=== PATIENT | female | born 1975 | race Hispanic/Latino ===

== ENCOUNTER 2017-10-15 09:07 | Inpatient (IN) | payer BC ==
[~2017-10-15] VITALS: Ht 160 cm; Wt 65.8 kg
[2017-10-15] MEDS ORDERED: SODIUM CHLORIDE 0.9% 1000ML 1,000 ML IV STA (09:53)
[2017-10-15] MEDS: SODIUM CHLORIDE 0.9% 1000ML 1,000 ML IV SCH ×2 (10:50→20:42)
[2017-10-15 11:00] LABS: BASOPHILS # (AUTO) 0.1 (0.0-0.1); BASOPHILS % 0.9 % (0.0-1.0); EOSINOPHILS % 0.4 % (0.0-6.0); HEMATOCRIT 31.8 % (34.2-44.1); HEMOGLOBIN 9.6 g/dL (12.0-16.0); LYMPHOCYTES # (AUTO) 1.5 (1.0-3.2); LYMPHOCYTES % 22.3 % (18.0-39.1); MEAN CORPUSCULAR HEMOGLOBIN 21.6 pg (28-32); MEAN CORPUSCULAR HGB CONC 30.2 g/dL (31-35); MEAN CORPUSCULAR VOLUME 71.6 fL (81-99); MONOCYTES # (AUTO) 0.5 (0.2-0.8); MONOCYTES % 7.6 % (4.4-11.3); NEUTROPHILS # (AUTO) 4.6 (2.1-6.9); NEUTROPHILS % 68.5 % (38.7-80.0); PLATELET COUNT 198 x10e3/uL (140-360); RED BLOOD COUNT 4.44 x10e6/uL (3.6-5.1); RED CELL DISTRIBUTION WIDTH 16.4 % (11.7-14.4)
[2017-10-15 11:01] LABS: BILIRUBIN,URINE NEGATIVE (NEGATIVE); KETONES,URINE NEGATIVE (NEGATIVE); LEUKOCYTE ESTERASE ,URINE 2+ (NEGATIVE); NITRITE,URINE NEGATIVE (NEGATIVE); PROTEIN,URINE DIPSTICK NEGATIVE (NEGATIVE); URINE UROBILINOGEN 0.2 mg/dL (0.2 - 1)
[2017-10-15 11:02] LABS: CLARITY,URINE CLEAR (CLEAR); COLOR,URINE YELLOW (YELLOW)
--- NOTE | 2017-10-15 11:02 | Diagnostic Imaging Report ---
PROCEDURE: A single AP view of the chest. COMPARISON: None. INDICATIONS: WEAKNESS, LIGHT-HEADED FINDINGS: Lines/tubes: None. Lungs: The lungs are well inflated and clear. There is no evidence of pneumonia or pulmonary edema. Pleura: There is no pleural effusion or pneumothorax. Heart and mediastinum: The heart and the mediastinum are unremarkable. Bones: No acute bony abnormality. IMPRESSION: No acute radiographic abnormality. Dictated by: Yfn Marino M.D. on 10/15/2017 at 11:02 Electronically approved by: Yfn Marino M.D. on 10/15/2017 at 11:02
[2017-10-15 11:15] LABS: WBC,URINE (MAN) 0-5 /HPF (0-5)
[2017-10-15 11:16] LABS: EPITHELIAL CELLS,URINE FEW /LPF
[2017-10-15 11:16] LABS: INR 1.16; PROTHROMBIN TIME 13.9 seconds (11.9-14.5)
[2017-10-15 11:17] LABS: PARTIAL THROMBOPLASTIN TIME 27.8 seconds (23.8-35.5)
[2017-10-15 11:24] LABS: ALANINE AMINOTRANSFERASE 20 IU/L (0-55); ALBUMIN 3.7 g/dL (3.5-5.0); ALBUMIN/GLOBULIN RATIO 1.3 (0.8-2.0); ALKALINE PHOSPHATASE 49 IU/L (40-150); ANION GAP 12.2 mmol/L (8-16); BLOOD UREA NITROGEN 14 mg/dL (7-26); BUN/CREATININE RATIO 22 (6-25); CALCIUM 8.9 mg/dL (8.4-10.2); CARBON DIOXIDE 23 mmol/L (22-29); CHLORIDE 108 mmol/L (98-107); CREATINE KINASE 45 IU/L (29-168); CREATININE, SERUM 0.64 mg/dL (0.57-1.11); EST GLOMERULAR FILTRATION RATE > 60 ML/MIN (60-); GLUCOSE 87 mg/dL (74-118); POTASSIUM 4.2 mmol/L (3.5-5.1); SODIUM 139 mmol/L (136-145)
--- OUTSIDE RECORDS SUMMARY | 2017-10-15 12:06 | XMS REPORT ---
Author Author [facility] Address Unknown Phone Unavailable Care Team Providers Care Cementer Hand Name Role Phone CARLA ARIZMENDI Unavailable Unavailable Problems This patient has no known problems. Allergies, Adverse Reactions, Alerts This patient has no known allergies or adverse reactions. Medications This patient has no known medications. Results Test Description Test Time Test Comments Text Results Atomic Results Result Comments CHEST SINGLE (PORTABLE) [place] [address] Patient Name: CRISS KYLE MR #: [id number] : 1975 Age/Sex: 42/F Req #: [id number] Adm Physician: Ordered by: SHIRA LO PRECISION DYER Report #: [id number] Location: ER Room/Bed: Procedure: [id number] DX/CHEST SINGLE (PORTABLE) Exam Date: 10/15/17 Exam Time: 1030 REPORT STATUS: Signed PROCEDURE: A single AP view of the chest. COMPARISON: None. INDICATIONS: WEAKNESS, LIGHT-HEADED FINDINGS: Lines/tubes: None. Lungs: The lungs are well inflated and clear. There is no evidence of pneumonia or pulmonary edema. Pleura: There is no pleural effusion or pneumothorax. Heart and mediastinum: The heart and the mediastinum are unremarkable. Bones: No acute bony abnormality. IMPRESSION: No acute radiographic abnormality. Dictated by: Xochilt Galicia M.D. on 10/15/2017 at 11:02 Electronically approved by: Xochilt Galicia M.D. on 10/15/2017 at 11: 02 Dictated By: XOCHILT GALICIA MD 01 Transcribed By: AARON on 10/15/171101 COPY TO : SHIRA LO NP
--- NOTE | 2017-10-15 13:47 | History and Physical ---
CHIEF COMPLAINT: Lightheadedness. HISTORY OF PRESENT ILLNESS: Ms. Pruitt is a pleasant 42-year-old woman with no past medical history, who presents with lightheaded spells when standing up. EKG shows sinus rhythm with third-degree AV block and left bundle branch block, pattern QRS. She denies any syncopal spells, chest pain or shortness of breath. She is sedentary. When she exerts, symptoms of fatigue seem present. She is not on any home medications. She denies any other past medical history. ALLERGIES: NO KNOWN DRUG ALLERGIES. REVIEW OF SYSTEMS: A 12-system review is negative, except for as noted above. PAST MEDICAL HISTORY: None reported. SOCIAL HISTORY: Negative times 3. FAMILY HISTORY: Noncontributory. PHYSICAL EXAMINATION VITALS: Temperature 99.2, heart rate 38, respiratory rate 16, blood pressure 134/71, and O2 sat 99% on room air. GENERAL: In no acute distress. Alert. NECK: No JVD. CHEST: Clear to auscultation. CARDIOVASCULAR: Regular rate and rhythm. Normal S1 and S2. Bradycardic. A 1/6 systolic ejection murmur. No S3. No S4. ABDOMEN: Soft. EXTREMITIES: No edema. Warm distal extremities. CARDIOVASCULAR MEDICATIONS: None other than normal saline. SCDs and TEDs advised. STUDIES REVIEWED: Chest x-ray unremarkable. White blood cells 6.6, hemoglobin 9.6 and platelets 198,000. INR 1.1. Sodium 139, potassium 4.2, chloride 108, bicarbonate 23, BUN 14, creatinine 0.6, glucose 87, calcium 8.9, magnesium 2. Total bilirubin 0.5, AST 16, ALT 20, alk phos 49. CK 45, CK-MB 3.5 and troponin I less than 0.001. Total protein 6.6, albumin 3.7. HCG quantitative is negative. UA significant for leukocyte esterase 2+, white blood cells 0-5, rbcs none, bacteria none. ASSESSMENT 1. Third-degree atrioventricular block with associated left bundle branch block. 2. Anemia. RECOMMENDATIONS 1. EP has been consulted for pacemaker implantation. 2. Echocardiogram has been ordered and is still pending. Will review once available. 3. SCDs and TEDs advised. 4. Continue saline IV for now. 5. Anemia workup. Job#: [id number] GABRIELLA
[2017-10-15 13:50] LABS: CHOL/HDL RATIO 2.8 (3.0-3.6)
[2017-10-15 14:10] LABS: FERRITIN 3.71 ng/mL (4.63-204.00); THYROID STIMULATING HORMONE 1.162 uIU/mL (0.350-4.940)
[2017-10-15 15:03] VITALS: BP 119/50
[2017-10-15 15:21] VITALS: BP 119/50
[2017-10-15] MEDS ORDERED: MIDAZOLAM HCL 2 MG/2 ML VIAL ONE ×2 (16:46→17:32)
[2017-10-15] MEDS ORDERED: FENTANYL CITRATE/PF 100MCG/2 ML INJ ONE (16:47)
[2017-10-15] MEDS ORDERED: SODIUM CHLORIDE 0.9% 1000ML 1,000 ML ONE (16:47)
[2017-10-15] MEDS ORDERED: LIDOCAINE HCL 2% LOCAL 20 ML VIAL ONE ×2 (16:47→17:29)
[2017-10-15] MEDS ORDERED: BACITRACIN 50,000 UNIT VIAL ONE (16:47)
[2017-10-15] MEDS ORDERED: SODIUM CHLORIDE 0.9% 500ML 500 ML ONE (16:47)
[2017-10-15] MEDS ORDERED: CEFAZOLIN SOD 2 GM/D5W 50ML 50 ML IV ONE (16:52)
[2017-10-15] MEDS ORDERED: MORPHINE SULFATE 2 MG/ML SYR IV PRN (19:45)
[2017-10-15 19:48] LABS: CREATINE KINASE MB 0.8 ng/mL (0-5.0)
[2017-10-15 20:14] VITALS: BP 130/76
[2017-10-15 20:15] VITALS: BP 130/76
--- NOTE | 2017-10-15 21:33 | Diagnostic Imaging Report ---
EXAM: CHEST SINGLE (PORTABLE), AP 1 view INDICATION: Unavailable COMPARISON: None FINDINGS: LINES/TUBES: Left approach dual lead cardiac device. LUNGS: No consolidations or edema. PLEURA: No effusions or pneumothorax. HEART AND MEDIASTINUM: Normal size and contour. BONES AND SOFT TISSUES: No acute findings. IMPRESSION: No acute thoracic abnormality. Signed by: Dr. Emilie Min M.D. on 10/15/2017 9:29 PM
--- NOTE | 2017-10-15 22:52 | Consultation ---
DATE OF CONSULTATION: October 15, 2017 REFERRING PHYSICIAN: Dr. Navas. REASON FOR CONSULT: Complete heart block. HISTORY OF PRESENT ILLNESS: This is a 42-year-old woman with no significant past medical history who presents today with progressive dizziness and near syncope. Patient was evaluated a few months ago. Patient was having episodes of high-degree AV block and also left bundle branch block. At that time, a pacemaker was considered, however, was not done. [place] However, she presents back with progressive symptoms of dizziness, tiredness, feeling very weak and having near syncope. She was found to be in sinus rhythm with 3rd degree AV block and left bundle branch block. No chest pain. REVIEW OF SYSTEMS CONSTITUTIONAL: Negative. CARDIOVASCULAR: As per HPI. RESPIRATORY: Negative. GASTROINTESTINAL: Negative. GENITOURINARY: Negative. MUSCULOSKELETAL: Negative. EYES: Negative. ENT: Negative. ALLERGY/IMMUNOLOGY: Negative. PSYCHIATRY: Negative. PAST MEDICAL HISTORY: Negative. PAST SURGICAL HISTORY: Negative. FAMILY HISTORY: No premature coronary artery disease. SOCIAL HISTORY: No smoking, alcohol or illicit drugs. PHYSICAL EXAM VITAL SIGNS: Blood pressure 110/60, pulse 40, respirations 20, O2 sat 98%. GENERAL: No acute distress. HEENT: Moist mucous membranes. CARDIOVASCULAR: Regular. RESPIRATORY: Clear. ABDOMEN: Soft, nontender. MUSCULOSKELETAL: 2+ distal pulses. No edema. NEUROLOGICAL: No focal deficit. SKIN: No lesions. PSYCHIATRY: Normal thought process. EKG: Sinus, intermittent 3rd degree AV block with left bundle branch block and escape rhythm. IMPRESSION: Third-degree atrioventricular block, highly symptomatic, no reversible causes. RECOMMENDATIONS: Had a discussion with the patient, she has indication for a pacemaker. This procedure was explained in detail with benefits and risks. Patient voices understanding and wishes to proceed. Will plan for a dual-chamber pacemaker. Thank you for letting us participate on Ms. Pruitt's [facility]. Job#: [id number]
[2017-10-15] MEDS: CEFAZOLIN SOD 2 GM in WATER STERILE 10ML VIAL 10 ML IV SCH (23:54)
[2017-10-16 00:18] VITALS: BP 137/79
[2017-10-16 04:02] VITALS: BP 129/77
[2017-10-16] MEDS: SODIUM CHLORIDE 0.9% 1000ML 1,000 ML IV SCH (04:17)
[2017-10-16 06:05] LABS: BASOPHILS # (AUTO) 0.1 (0.0-0.1); BASOPHILS % 0.6 % (0.0-1.0); EOSINOPHILS % 0.1 % (0.0-6.0); HEMATOCRIT 28.9 % (34.2-44.1); HEMOGLOBIN 8.9 g/dL (12.0-16.0); LYMPHOCYTES # (AUTO) 0.8 (1.0-3.2); LYMPHOCYTES % 9.2 % (18.0-39.1); MEAN CORPUSCULAR HEMOGLOBIN 21.8 pg (28-32); MEAN CORPUSCULAR HGB CONC 30.8 g/dL (31-35); MEAN CORPUSCULAR VOLUME 70.8 fL (81-99); MONOCYTES # (AUTO) 0.5 (0.2-0.8); MONOCYTES % 5.5 % (4.4-11.3); NEUTROPHILS # (AUTO) 6.9 (2.1-6.9); PLATELET COUNT 190 x10e3/uL (140-360); RED BLOOD COUNT 4.08 x10e6/uL (3.6-5.1); RED CELL DISTRIBUTION WIDTH 16.1 % (11.7-14.4)
[2017-10-16] MEDS: CEFAZOLIN SOD 2 GM in WATER STERILE 10ML VIAL 10 ML IV SCH (06:09)
[2017-10-16 06:37] LABS: BLOOD UREA NITROGEN 11 mg/dL (7-26); BUN/CREATININE RATIO 18 (6-25); CALCIUM 8.6 mg/dL (8.4-10.2); CARBON DIOXIDE 21 mmol/L (22-29); CHLORIDE 108 mmol/L (98-107); CREATININE, SERUM 0.62 mg/dL (0.57-1.11); EST GLOMERULAR FILTRATION RATE > 60 ML/MIN (60-); GLUCOSE 96 mg/dL (74-118); MAGNESIUM 1.9 MG/DL (1.3-2.1); SODIUM 137 mmol/L (136-145)
[2017-10-16 07:00] VITALS: BP 110/66
[2017-10-16 07:07] LABS: CREATINE KINASE MB 0.7 ng/mL (0-5.0)
[2017-10-16] MEDS ORDERED: MINOCYCLINE HCL50 MG PO (10:13)
[2017-10-16] MEDS ORDERED: ULTRAM50 MG PO (10:14)
--- NOTE | 2017-10-16 10:32 | Discharge Summary ---
REASONS FOR ADMISSION 1. Third-degree atrioventricular block, symptomatic. 2. Anemia. PROCEDURES PERFORMED: Echocardiogram and permanent pacemaker implantation, dual-chamber [employer]. Estimated blood loss less than 15 mL. HOSPITALIZATION SUMMARY: The patient was admitted with symptomatic 3rd-degree AV block, which has been ongoing now for at least a couple of months. She has complained of presyncopal spells and has mare 3rd-degree AV block and left bundle-branch block noted on ECG. Preserved left ventricular systolic function on echocardiogram. She underwent permanent pacemaker implantation by Dr. Grant Madrigal successfully with no complications. This device was interrogated and functioning well post procedure. The patient has been discharged on antibiotic prophylaxis minocycline and p.r.n. analgesic with followup with Dr. Grant Madrigal in [address] Prashant Navas in 3 to 4 weeks. Pacemaker pocket site care and restrictions discussed with the patient. The patient advised to follow up with primary care physician for further workup of her anemia. PRASHANT TREVIÑO MD Job#: [id number]
[2017-10-16 12:00] VITALS: BP 120/74
--- NOTE | 2017-10-16 14:53 | Operative Report ---
DATE OF PROCEDURE: October 15, 2017 PREPROCEDURE DIAGNOSES 1. Third-degree atrioventricular block. 2. Left bundle-branch block, highly symptomatic. POSTPROCEDURE DIAGNOSES 1. Third-degree atrioventricular block. 2. Left bundle-branch block, highly symptomatic. ESTIMATED BLOOD LOSS: 5 mL. COMPLICATIONS: None. PROCEDURES PERFORMED 1. Dual-chamber pacemaker. 2. Moderate sedation. Moderate conscious sedation was provided under my direct supervision by sedation-trained nurse. Sedation approximate time 30 minutes. No complications. See sedation form for details. DESCRIPTION OF PROCEDURE: After informed consent was obtained, patient was brought to the electrophysiology laboratory in a fasting nonsedated state. The area over her chest was prepped and draped in the usual sterile fashion. Moderate sedation and prophylactic antibiotics were given. Lidocaine 1% was used as local anesthetic and a 3-cm skin incision was made in the left subclavicular area. Electrocautery, sharp, and blunt dissection were used to reach the muscular fascia and the pocket was created for eventual implantation of the device. Vascular access was obtained times 2 in the left axillary vein using a modified Seldinger technique under fluoroscopic guidance. 2 6Fr sheaths were placed. Ventricular lead advanced to the RV apex, R-wave 14, pacing 0.5 at 3.4, impedance 772. Atrial lead to the right atrial appendage, P-wave 4, pacing 0.7 at 0.4, impedance 595. Sheaths were removed from the body. Leads were secured to fascia using 0-silk. Pocket was irrigated with antibiotic solution using the pulse armed custom protection officer. Hemostasis was meticulous. Leads were connected to the device. The entire pacemaker system placed in the pocket. Incision was closed using Vicryl and Dermabond. Patient tolerated procedure well. Procedure deemed complete. SUMMARY OF HARDWARE IMPLANTED 1. The pacemaker is [employer], model #331, serial [id number], 2. The atrial lead is [employer], 6676, [id number]. 3. The ventricular lead is [employer], 7741, [id number]. IMPRESSION: Successful dual-chamber pacemaker implant via left axillary vein. PLAN 1. Routine postoperative monitoring in telemetry bed. 2. Chest x-ray. 3. Follow up in 2 weeks. Job#: [id number] ANIKET
== END 2017-10-16 12:15 | disposition home or self-care (01) | DRG 244 ==
LOC: ER 09:07 → ERHOLD 12:04 → IMCU 13:50
PROVIDERS: ADMIT Internal Medicine Cardiovascular Disease; ATTEND Internal Medicine Cardiovascular Disease
PROC: 0JH606Z Insertion of Pacemaker, Dual Chamber into Chest Subcutaneous Tissue and Fascia, Open Approach (ICD-10-PCS; principal; 2017-10-15)
PROC: 02HK3JZ Insertion of Pacemaker Lead into Right Ventricle, Percutaneous Approach (ICD-10-PCS; 2017-10-15)
PROC: 02H63JZ Insertion of Pacemaker Lead into Right Atrium, Percutaneous Approach (ICD-10-PCS; 2017-10-15)
DX: I44.2 Atrioventricular block, complete (principal); D64.9 Anemia, unspecified; I44.7 Left bundle-branch block, unspecified
CPT/HCPCS: 33208; 36005; 36415; 71045; 77001; 77002; 80048; 80053; 80061; 81001; 82550; 82553; 82607; 82728; 82747; 83036; 83540; 83735; 84443; 84466; 84484; 84702; 85025; 85610; 85730; 93005; 93306; 99284; C1898; J0690; J2001; J2250; J2270; J7030; J7040

== ENCOUNTER → 2018-10-26 | Day surgery (SDC) | payer BC ==
[~2018-10-26] MED LIST: FENTANYL CITRATE/PF 100MCG/2 ML INJ ONE; FERROCITE324 MG PO; MIDAZOLAM HCL 2 MG/2 ML VIAL ONE; MINOCYCLINE HCL50 MG PO; OMEPRAZOLE40 MG PO; PROPOFOL IV EMULSION 10 MG/ML 50 ML VIAL ONE; ULTRAM50 MG PO
[2018-10-26 11:30] VITALS: BP 116/56
== END | disposition home or self-care (01) ==
LOC: OR 06:55
PROVIDERS: ATTEND Internal Medicine Gastroenterology
DX: K29.50 Unspecified chronic gastritis without bleeding (principal); K21.0 Gastro-esophageal reflux disease with esophagitis; K22.8 Other specified diseases of esophagus; K59.00 Constipation, unspecified; Z98.84 Bariatric surgery status; B96.81 Helicobacter pylori [H. pylori] as the cause of diseases classified elsewhere; D64.9 Anemia, unspecified; F41.9 Anxiety disorder, unspecified; Z95.0 Presence of cardiac pacemaker
CPT/HCPCS: 43239; J2250; J2704